=== PATIENT | female | born 1950 | race Hispanic/Latino ===

== ENCOUNTER → 2025-10-20 | Outpatient (CLI) | payer OTHER ==
[~2025-10-20] MED LIST: ALEN70TA80 PO; ASPI-1005 PO; ATOR40TA69 PO; LEVO25TA54 PO; LOSA100T59 PO
--- NOTE | 2025-10-21 09:32 | HMCIMG ---
STUDY CT Abdomen and Pelvis Without IV ContrastHISTORY Left lower quadrant pain.TECHNIQUE Axial CT images of the abdomen and pelvis obtained without intravenous contrast. CT dose length product: 282.CONTRAST No IV contrast.COMPARISON None provided.FINDINGS Lung Bases Clear; no pleural effusion. Liver Unremarkable. Gallbladder and Bile Ducts Gallbladder surgically absent. No biliary ductal dilatation. Pancreas Unremarkable. Spleen Unremarkable. Adrenal Glands Unremarkable. Kidneys, Ureters, and Bladder Right upper pole exophytic cortical cystic lesion measuring 1.5 ??? 1 cm with wall calcifications. No hydronephrosis, hydroureter, or urinary calculi. Bladder unremarkable. Stomach and Bowel No bowel obstruction or inflammation. Appendix Retrocecal appendix measuring 0.5 cm, normal in appearance. Peritoneum No free fluid or free air. Hernias Umbilical hernia with 1.5 cm fascial defect containing fat only. Lymph Nodes No lymphadenopathy. Reproductive Organs Uterus surgically absent. Adnexa unremarkable for noncontrast CT. Vasculature No abdominal aortic aneurysm. Bones No acute or suspicious osseous abnormality.IMPRESSION : No acute abdominal or pelvic pathology. /Keagan
== END | disposition home or self-care (01) ==
LOC: RAH 14:14
PROVIDERS: ATTEND Internal Medicine
DX: K42.9 Umbilical hernia without obstruction or gangrene (principal); R10.32 Left lower quadrant pain; Z90.49 Acquired absence of other specified parts of digestive tract; Z90.710 Acquired absence of both cervix and uterus
CPT/HCPCS: 74176